=== PATIENT | female | born 1955 | race Caucasian/White ===

== ENCOUNTER 2020-03-20 19:37 | Emergency (ER) | payer MEDICARE, SELFPAY ==
[2020-03-20] VITALS (22 sets, daily range): BP systolic 139–188; BP diastolic 68–125; PULSE 66–94; RESP 10–33; TEMP 36.6; O2SAT 92–97; BMI 26.2
--- NOTE | 2020-03-20 20:01 | DI.RAD.S_ITS ---
PROCEDURE: XR FOREARM RT 2V INDICATIONS: slip/fall while showering TECHNIQUE: 2 views of the forearm were acquired. COMPARISON: None. FINDINGS: Bones: Remote orthopedic fixation of the shaft of the ulna with a side plate and multiple screws without hardware failure or loosening. Distal radial diametaphyseal fracture with mild displacement and angulation. Soft tissues: No suspicious soft tissue calcifications or masses. IMPRESSION: Distal radial diametaphyseal fracture with mild displacement and angulation. Dictated by: Benny Chu M.D. on 03/20/2020 at 20:35 Approved by: Benny Chu M.D. on 03/20/2020 at 20:37
--- NOTE | 2020-03-20 20:02 | DI.RAD.S_ITS ---
PROCEDURE: XR WRIST RT MIN 3V INDICATIONS: Slip/fall while showering TECHNIQUE: 3 views of the wrist were acquired. COMPARISON: None. FINDINGS: Bones: Markedly comminuted, impacted, angulated, mildly displaced distal radius fracture extending to the articular surface. Remote ORIF of the ulnar shaft with no evidence of hardware failure or loosening. No suspicious bony lesions. Soft tissues: No suspicious soft tissue calcifications. IMPRESSION: Markedly comminuted, impacted, angulated, mildly displaced distal radius fracture extending to the articular surface. Dictated by: Benny Chu M.D. on 03/20/2020 at 20:38 Approved by: Benny Chu M.D. on 03/20/2020 at 20:39
--- NOTE | 2020-03-20 21:17 | PC.NURSE ---
Report given to Brianna, NR
[2020-03-20] MEDS: OXYCODONE/APAP 5/325 PREPACK 1 BOTTLE MISC (22:55)
[2020-03-20] MEDS: ONDANSETRON 4 MG/2 ML INJ IV (22:55)
[2020-03-20] MEDS: ONDANSETRON 4 MG ODT PREPACK 1 BOTTLE MISC (22:55)
[2020-03-20] MEDS: propofoL 200 MG/20 ML VIAL 70 MG IV (23:15)
[2020-03-20] MEDS: propofoL 200 MG/20 ML VIAL 90 MG IV (23:18)
[2020-03-20] MEDS: HYDROMORPHONE 1 MG INJ IV (23:52)
[2020-03-21] VITALS: PULSE 74; RESP 28
--- NOTE | 2020-03-21 | DI.RAD.S_ITS ---
PROCEDURE: XR WRIST RT 2V INDICATIONS: POST REDUCTION TECHNIQUE: 3 views of the wrist were acquired. COMPARISON: [facility], CR, XR FOREARM RT 2V, 03/20/2020, 20:02. [facility], CR, XR WRIST RT MIN 3V, 03/20/2020, 20:02. FINDINGS: Bones: On these postcasting views, there is improved anatomic alignment of the comminuted, intra-articular distal radius fracture. The visualized distal ulna hardware appears intact. Age-appropriate bony degenerative changes are seen. The overlying casting material limits evaluation of fine detail. Soft tissues: No suspicious soft tissue calcifications. IMPRESSION: Improved anatomic alignment of the distal radius fracture. Dictated by: Vladimir Marin M.D. on 03/21/2020 at 8:50 Approved by: Vladimir Marin M.D. on 03/21/2020 at 8:51
[2020-03-21 00:05] VITALS: PULSE 83; RESP 23
[2020-03-21 00:10] VITALS: PULSE 79; RESP 31
[2020-03-21 00:15] VITALS: PULSE 77; RESP 20
[2020-03-21 00:25] LABS: COVID19 -Nasal RAPID Negative (Negative)
--- NOTE | 2020-03-21 06:27 | ED_ITS ---
HPI - Extremity Injury (Upper) General Chief Complaint: Extremity Injury, Upper Stated Complaint: Right arm thinks fractured Time Seen by Provider: 03/20/20 20:02 Source: patient and family Mode of arrival: Ambulatory Limitations: no limitations History of Present Illness HPI narrative: 64-year-old female never smoker with noncontributory medical history presents with a chief complaint of right wrist pain after an accidental fall earlier today. In doing so she felt immediate, significant pain in her right wrist which is made worse with motion and improves with rest. She denies any numbness, tingling or weakness. She denies any other injury. She denies chest pain, shortness of breath. MD complaint: injury to: right Onset (ago): hour(s) Other injuries: none Handedness: right Place: home Relieving factors: immobilization Exacerbating factors: movement of extremity Context: fall Associated symptoms: denies other symptoms Treatments prior to arrival: splint Related Data Previous Rx's Medication Instructions Recorded ondansetron 4 mg PO TID-QID PRN #10 tab 03/20/20 oxycodone 5 mg PO Q6H PRN #20 tab 03/20/20 Allergies Allergy/AdvReac Type Severity Reaction Status Date / Time gluten [GLUTEN] Allergy Unknown Unverified 11/14/17 11:48 Review of Systems Constitutional Constitutional: Denies chills, Denies fatigue, Denies fever(s), Denies frequent falls, Denies lethargy and Denies weakness Eyes Eyes: Denies change in vision, Denies eye discharge, Denies irritation and Denies loss of vision ENT Ears, Nose, Mouth, and Throat: Denies change in voice, Denies dizziness, Denies neck pain, Denies sore throat and Denies throat swelling Cardiovascular Cardiovascular: Denies chest pain, Denies irregular heart rhythm, Denies lightheadedness, Denies palpitations, Denies dyspnea, Denies dyspnea on exertion and Denies orthopnea Respiratory Respiratory: Denies cough, Denies dyspnea, Denies dyspnea on exertion and Denies wheezing Gastrointestinal Gastrointestinal: Denies abdominal pain, Denies change in bowel habits, Denies diarrhea, Denies nausea and Denies vomiting Musculoskeletal Musculoskeletal: Reports arthralgias, Reports joint swelling, Denies neck pain and Denies numbness Integumentary/Breasts Skin/Breast: Denies pruritus, Denies erythema, Denies rash and Denies wounds Neurologic Neurologic: Denies behavioral changes, Denies confusion, Denies dizziness, Denies frequent falls, Denies loss of vision, Denies numbness and Denies weakness Psychiatric Psychiatric: Denies anxiety, Denies behavioral changes, Denies confusion, Denies depression, Denies homicidal ideation and Denies suicidal ideation Endocrine Endocrine: Denies fatigue, Denies flushing and Denies palpitations Hematologic/Lymphatic Hematologic/Lymphatic: Denies easy bruising Allergic/Immunologic Allergic/Immunologic: Denies urticaria, Denies throat swelling and Denies wheezing Patient History Surgical History History of bladder suspension procedure History of lithotripsy Status post hysterectomy Social History Smoking Status: Never smoker Smoking Status: Never smoker alcohol intake frequency: 0-2 drinks per day Substance Use Type: does not use Exam Narrative Exam Narrative: GENERAL: [64] year old patient appears stated age. Well- nourished, well-developed patient, in mild distress. HEAD: Atraumatic. Normocephalic. EYES: Pupils equal round and reactive. Extraocular motions intact. No scleral icterus. No injection or drainage. ENT: Nose without bleeding, purulent drainage. Throat without erythema, tonsillar hypertrophy or exudate. Airway patent. NECK: Trachea midline. Non tender CARDIOVASCULAR: Regular rate and rhythm without murmurs, gallops, or rubs. RESPIRATORY: Clear to auscultation. Breath sounds equal bilaterally. No wheezes, rales, or rhonchi. GASTROINTESTINAL: Abdomen soft, non-tender, nondistended. EXTREMITIES: Obvious deformity consistent with distal radius fracture, closed, isolated neurovascularly intact BACK: Nontender without deformity or crepitance. No flank tenderness. NEURO: AOx3. SKIN: No rash or erythema of visible areas Initial Vital Signs Initial Vital Signs: Vital Signs Temperature 97.9 F 03/20/20 19:45 Pulse Rate 94 H 03/20/20 19:45 Respiratory Rate 17 03/20/20 19:45 Blood Pressure 188/73 H 03/20/20 19:45 Pulse Oximetry 97 03/20/20 19:45 Procedures Orthopedic Fracture Reduction Fracture #1: Time Out Performed: Yes Side: right Fracture Reduction Location: radius Analgesia: procedural sedation Technique: direct manipulation Post Reduction X-rays Demonstrate: anatomical reduction Post-reduction neuro exam: intact Post-reduction vascular exam: intact Splint Applied: Yes Patient Tolerated Procedure: Well Orthopedic Splinting/Casting Injury #1: Side: right Upper Extremity Injury Location: wrist Upper Extremity Immobilizer: sling/shoulder immobilizer Post splinting neuro exam: intact Post splinting vascular exam: intact Placed by: Nursing Procedural Sedation Consent signed: Yes Time out performed: Yes Indication: fracture/dislocation reduction ASA Class: II Mallampati Airway Classification: Class II Preparation: diagnostic cardiac sonographer applied, pulse oximeter, capnometry used, supplemental O2 applied and suction/airway equipment at bedside IV Propofol dose (mg): 160 Intraservice time/total sedation time (min): 10 ED Sedation Level: Moderate (Concious) Patient Tolerated Procedure: Well Complications: none Course Orders Ordered: ED Orders 03/21/20 XR wrist RT 2V Stat Discontinued Medications Hydromorphone HCl (Dilaudid) 1 mg IV NOW ONE Stop: 03/20/20 23:49 Last Admin: 03/20/20 23:52 Dose: 1 mg Documented by: AMNA Ondansetron HCl (Zofran Odt Prepack) 1 bottle MISC SEEINSTR ONE Stop: 03/20/20 22:45 Last Admin: 03/20/20 22:55 Dose: 1 bottle Documented by: AMNA Ondansetron HCl (Zofran) 4 mg IV NOW ONE Stop: 03/20/20 22:45 Last Admin: 03/20/20 22:55 Dose: 4 mg Documented by: AMNA Oxycodone/Acetaminophen (Endocet 5/325 Prepack) 1 bottle MISC SEEINSTR ONE Stop: 03/20/20 22:45 Last Admin: 03/20/20 22:55 Dose: 1 bottle Documented by: AMNA Propofol (Diprivan) 70 mg 1 mg/kg (70 mg) IV NOW ONE Stop: 03/20/20 22:45 Last Admin: 03/20/20 23:15 Dose: 70 mg Documented by: AMNA Propofol (Diprivan) 90 mg IV NOW ONE Stop: 03/20/20 23:26 Last Admin: 03/20/20 23:18 Dose: 90 mg Documented by: AMNA Vital Signs Vital signs: Vital Signs - 8 hr 03/20/20 22:30 03/20/20 22:35 03/20/20 22:40 Pulse Rate 75 76 79 Respiratory Rate Blood Pressure Pulse Oximetry 96 96 95 03/20/20 22:41 03/20/20 22:45 03/20/20 22:50 Pulse Rate 78 78 80 Respiratory Rate Blood Pressure 169/79 H Pulse Oximetry 95 95 96 03/20/20 22:55 03/20/20 23:00 03/20/20 23:05 Pulse Rate 79 80 79 Respiratory Rate 10 L Blood Pressure 155/74 H Pulse Oximetry 95 93 94 03/20/20 23:10 03/20/20 23:15 03/20/20 23:20 Pulse Rate 78 81 80 Respiratory Rate 12 21 20 Blood Pressure 151/73 H 139/68 151/68 H Pulse Oximetry 94 97 97 03/20/20 23:25 03/20/20 23:30 03/20/20 23:31 Pulse Rate 93 H 85 85 Respiratory Rate 33 H 33 H 22 Blood Pressure 181/125 H Pulse Oximetry 96 96 92 03/20/20 23:33 03/20/20 23:35 03/20/20 23:40 Pulse Rate 74 69 69 Respiratory Rate 28 H 19 15 Blood Pressure 171/79 H Pulse Oximetry 96 95 94 03/20/20 23:45 03/20/20 23:50 03/20/20 23:55 Pulse Rate 66 71 72 Respiratory Rate 13 15 10 L Blood Pressure 155/72 H Pulse Oximetry 93 96 94 03/21/20 00:00 03/21/20 00:05 03/21/20 00:10 Pulse Rate 74 83 79 Respiratory Rate 28 H 23 31 H Blood Pressure Pulse Oximetry 03/21/20 00:15 Pulse Rate 77 Respiratory Rate 20 Blood Pressure Pulse Oximetry MDM - Extremity Injury (Upper) Lab Data Labs: Lab Results 03/20/20 Range/Units 22:45 COVID-19 PCR Negative (Negative) Point of Care Testing Test Results Not applicable Discharge Plan Departure Patient Disposition: Home Clinical Impression: Distal radius fracture, right Qualifiers: Encounter type: initial encounter Fracture type: closed Fracture morphology: un specified fracture morphology Qualified Code(s): S52.501A - Unspecified fracture of the lower end of right radius, initial encounter for closed fracture Discharge Date/Time: 03/21/20 00:12 Instructions: DI for Distal Radius Fracture Activity Restrictions/Additional Instructions: *You have been diagnosed with [right distal radius fracture] *What to do: *Take medications as directed *Follow up with Dr. Mccall, call for an appointment. Let them know you were seen in the Emergency Department and that we ask that you be seen in follow up *Return to ER if you should have any new, worsening or concerning symptoms Prescriptions: New oxycodone 5 mg tablet 5 mg PO Q6H PRN (Reason: pain) Qty: 20 RF: 0 ondansetron 4 mg tablet,disintegrating 4 mg PO TID-QID PRN (Reason: nausea and vomiting) Qty: 10 RF: 0 Referrals: Reinaldo Melgoza MD [Primary Care Provider] -
--- NOTE | 2020-03-22 10:11 | PM.HP.1 ---
History of Present Illness History of Present Illness Date Patient Seen: 03/22/20 Time Patient Seen: 10:10 Date of Onset of Symptoms: 03/20/20 Chief complaint: Right arm thinks fractured Narrative: Chika 64-year-old female that fell onto her right wrist in her bathroom. She is in the midst of moving right now. She is right-hand dominant. 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 That has since resolved. She also has a history of a TFCC repair. Her last surgeries were done by Dr. Lobito Adrian in [place] in 2014. She endorsed immediate pain deformity and swelling and bruising during her fall on 03/20/2020. Her son was with her. They took the [place] to [facility] and had x-rays that demonstrated a displaced right distal radius fracture. She was reduced in the ER and splinted and released for plan returned to surgery. She had a COVID-19 test that was negative. She has a displaced intra-articular distal radius fracture. Endorses pain. She states she was given Percocet from the ER. This has helped some but she also has a history of celiac disease and has had multiple difficulties taking medications in the past. Per her previous surgeries she actually did best with low-dose p.o. Dilaudid. She also endorses some nausea. She has to balance the affects of the pain medication and constipation. Her stomach unable to tolerate anti-inflammatories. Denies fevers chills nausea vomiting shortness of breath. Patient History Surgical History History of bladder suspension procedure History of lithotripsy Status post hysterectomy Family & Social History Tobacco & Substance use: Smoking Status Never smoker alcohol intake frequency 0-2 drinks per day Substance Use Type does not use Meds Home Medications and Allergies Home Medications Medication Instructions Recorded Confirmed Type ondansetron 4 mg PO TID-QID PRN #10 tab 03/20/20 Rx oxycodone 5 mg PO Q6H PRN #20 tab 03/20/20 Rx Allergies Allergy/AdvReac Type Severity Reaction Status Date / Time hydroxyzine Allergy Severe increased Verified 03/22/20 10:09 heart rate gluten [GLUTEN] Allergy Unknown Verified 03/22/20 10:09 acetaminophen [From Percocet] AdvReac Severe Agitated Verified 03/22/20 10:09 oxycodone [From Percocet] AdvReac Severe Agitated Verified 03/22/20 10:09 Review of Systems Review of Systems Narrative: History of wound intolerance, nickel allergy. Denies fevers chills. Denies nausea or vomiting. Does get some nausea with pain medications. ROS: Yes All systems reviewed with the patient and are negative except as otherwise documented Exam Vital Signs (past 8 hours): Oxygen Delivery Method Room Air Narrative Exam Narrative: General exam: HEENT exam: Respiratory exam: CV exam: Musculoskeletal examination: Objective Imaging Wrist x-ray: My impression: Three-view right wrist before and after reduction are AP oblique and lateral demonstrate displaced intra-articular distal radius fracture with shortening. There has been plate fixation of the ulna without evidence of acute ulnar injury. Her postreduction images that show improved alignment of the intra-articular distal radius fracture. Radiologist's impression: IMPRESSION: Markedly comminuted, impacted, angulated, mildly displaced distal radius fracture extending to the articular surface. Dictated by: Benny Chu M.D. on 03/20/2020 at 20:38 Approved by: Benny Chu M.D. on 03/20/2020 at 20:39 Labs Labs: Laboratory Results - last 24 hr 03/20/20 22:45 COVID-19 PCR Negative Assessment & Plan Assessment and plan (1) Distal radius fracture, right: Problem details: Right intra-articular distal radius fracture with shortening and displacement. Patient is indicated for operative treatment to improve and maintain alignment reduce the risk of fracture collapse and dysfunction and facilitate early range of motion. She does have a history of a nickel allergy therefore would plan for a titanium plate. This will be done on an outpatient basis. Patient is in the midst of moving off of the [facility] this week. Will try to coordinate this for her for a operation date of 03/22/2020. [place] friend in [place]. She has a negative covered has. Will order the [employer] titanium distal radius up tray. Plan for surgery around 11:00 a.m. on Sunday arrival time at 9:00 a.m. patient is notified of this. Will be outpatient procedure. Consent will be completed morning of surgery Qualifiers: Encounter type: initial encounter Fracture morphology: unspecified fracture morphology Fracture type: closed Qualified Code(s): S52.501A - Unspecified fracture of the lower end of right radius, initial encounter for closed fracture Status: Acute (2) H/O metal allergy: Problem details: History of metal allergy had a reaction with stainless steel plate on her ulna this was later removed and then revised to a titanium plate which she has tolerated well. Will plan titanium hardware for the distal radius fracture Status: Acute Assessment & Plan narrative: The patient sustained a right closed distal radius fracture in a fall at home. She has unrelated worker's Comp claims regarding the ulna on the same side that was fixed a years ago. This is an unrelated injury with a fall onto the right wrist at home resulting in the right distal radius fracture. The displaced intra-articular fracture that would benefit from a stable fixation to prevent recurrent deformity and facilitate early range of motion. The risks and benefits of the procedure have been discussed with the patient even opportunity to ask questions. The risks of surgery include but are not limited to infection, malunion, nonunion, persistence of pain, damage to nerves and blood vessels, posttraumatic arthritis, DVT, PE, cardiopulmonary complications and . The patient expressed a thorough understanding of the risks and benefits of surgery and has elected to proceed. Consent was signed. COVID-19 COVID-19 status: Negative Result date/Date tested (Pos, Neg/Pending): 03/21/20 Time Spent With Patient Time with patient: less than 15 minutes Quality VTE Deep Vein Thrombosis/Pulmonary Embolism Present on Admission: No
--- NOTE | 2020-03-22 10:12 | PM.PREOP ---
Pre-operative Note COVID-19 COVID-19 status: Negative Interval Note History & Physical reviewed/Exam performed by Physician: Yes Changes to H&P: No
== END 2020-03-21 00:12 | disposition home or self-care (01) ==
PROVIDERS: Emergency Provider Emergency Medicine; PCP Family Medicine; Referring Provider Preventive Medicine Occupational Medicine
DX: S52.501A Unspecified fracture of the lower end of right radius, initial encounter for closed fracture (principal); W19.XXXA Unspecified fall, initial encounter
CPT/HCPCS: 25605; 29125; 36415; 73090; 73100; 73110; 87635; 94770; 99152; 99285; J1170; J2405; J2704

== ENCOUNTER 2020-03-22 09:38 | Day surgery (SDC) | payer MEDICARE, SELFPAY ==
[2020-03-22] VITALS (10 sets, daily range): BP systolic 115–148; BP diastolic 54–87; PULSE 72–94; RESP 13–16; TEMP 36.7–36.9; O2SAT 90–98; BMI 25.0
[2020-03-22] MEDS: LACTATED RINGERS 1,000 ML 120 ML IV ×2 (10:30→12:16)
--- NOTE | 2020-03-22 10:32 | P.OP_ITS ---
Operative Date/Time/Diagnoses Date of procedure: 03/22/20 Time of procedure: 10:32 Pre-op diagnosis: Displaced right intra-articular distal radius fracture Post-op diagnosis: same Procedure & Clinicians Procedure: Open reduction internal fixation 3 part distal radius fracture, intra-articular, right CPT code 66633 Same procedure as scheduled: Yes Indications: Patient is a 64-year-old female with a history of a right hand dominant. She has a remote history of a ulnar shortening osteotomy complicated by nickel allergy and nonunion requiring revision with titanium plate. That is a separate L&I claim. She fell on 03/20/2020 backwards onto her wrist and had immediate pain and deformity. She was seen [facility] ER and found to have a displaced right distal radius fracture. This was shortened and comminuted and intra-articular. She had a reduction maneuver in the ER there was continued displacement. The patient was indicated for open reduction internal fixation to restore length articular alignment and to help restore function and facilitate early range of motion. Patient has elected to proceed. We will use a titanium plate. The risks and benefits of the procedure have been discussed with the patient even opportunity to ask questions. The risks of surgery include but are not limited to infection, malunion, nonunion, persistence of pain, damage to nerves and blood vessels, posttraumatic arthritis, DVT, PE, cardiopulmonary complications and . The patient expressed a thorough understanding of the risks and benefits of surgery and has elected to proceed. Consent was signed. Surgeon: Polina Arthur Click Yes if Unassisted: Yes Anesthesia Type: General and Local Operative Notes Findings: Displaced distal radius fracture, right Closure Type: primary Specimen(s): none sent Prosthetic devices, grafts, tissues, transplants, or devices: [facility] fatou-2 titanium volar distal radius locking plate-- narrow, short right-sided distal radius plate (3 hole). With 3.5 locking and nonlocking screws proximally and 2.3 locking pegs distally. Estimated Blood Loss (mL): 5 Blood products transfused: none Tourniquet time (min): 62 Procedure in detail: Patient was in the preoperative area the site of surgery was marked informed consent confirmed. The patient was brought back to the operating room by the anesthesia team. She was positioned supine operative table. All bony problems well padded. A anesthesia was administered. A well- padded brachial tourniquet was placed. A formal time-out procedure was called confirming the patient's side and site of surgery administration of appropriate preoperative antibiotics and presence of informed consent. All were in agreement. Implants were in the room. The right upper extremity is then prep ped and draped in standard sterile fashion. Esmarch was used for exsanguination and the tourniquet elevated to 250 mm of mercury. And extended FCR approach was drawn on the wrist the incision was taken down to the skin sharply. The FCR was exposed. The sheath was opened and the tendon retracted ulnarly to protect the palmar cutaneous branch of the median nerve. Radia artery was visualized and protected. The floor of the FCR was then opened to expose the deep muscles. The FPL was retracted ulnarly and the pronator quadratus was then released from the radial border reflected ulnarly to expose the distal radius and the fracture. Transitional zone was debrided to expose the distal extent of the fracture. Brachioradialis was tenotomized and the 1st compartment opened to expose the tendons. This allowed us to free up the dorsal periosteum and evacuated the hematoma. Fracture was then mobilized by pronating the proximal fragment with a lobster claw clamp. The fracture site was debr ided. Next a reduction maneuver was completed restoring the volar tilt and radial height. This on the patient's size a narrow short distal radius plate was selected. This was positioned and a nonlocking 3.5 screw was placed in the oblong hole. A K-wire placed distally. Position was checked on multiple fluoroscopic images intraoperatively. Care was taken to make sure the plate was a proximal to the water should line in appropriate laterally. Next a nonlocking screw was placed distally to bring the plate down to bone. Then another nonlocking screw was placed in the radial styloid hole however this did not chief good bites of this was removed and replaced with locking pegs. Additional distal holes were filled with locking pegs. And the original nonlocking screw in the proximal ulnar corner was replaced with locking screw at the end. Multiple fluoroscopic images were obtained intraop. No evidence of hardware or dorsal cortex penetration was found. Then attention was turned to the proximal screws to 3 5 locking screws were placed to finish up the proximal fixation. Again final x-rays were taken confirming uatsdin of radial height and volar tilt in stable construct. No evidence of intra-articular prominent hardware was found. The wrist was taken through range of motion no blocks or crepitus noted. Tourniquet was released. Hemostasis was achieved. Fingers pinked up immediately. A deep closure was attempted with a Vicryl through the pronator quite quadratus however this ripped through easily. One repeat suture was completed to but the rest of the tissue was in poor quality therefore closure continued on with 4 0 Monocryl subcutaneously supplemented by few 2 O Vicryl and then 3 O nylon in the skin. Local anesthetic was infiltrated with 20 cc of Marcaine. A sterile dressing was placed with Xeroform gauze Webril and a volar resting splint. Patient was woken from anesthesia and taken to the recovery room in good condition. There no immediate complications from this procedure. All counts were correct. Complications: none Post-operative Condition: stable Disposition: PACU Plan for aftercare: Rest and elevation of the right upper extremity. 2 lb or coffee cup type weight limit. May type. Keep dressing and splint clean dry and intact until follow-up. Follow up in 10-14 days after surgery for suture removal and the initiation of range of motion and removable brace.
[2020-03-22] MEDS: SCOPOLAMINE 1 PATCH TOP (10:39)
[2020-03-22] MEDS: ACETAMINOPHEN 325 MG TABLET 975 MG PO (10:39)
[2020-03-22] MEDS: CEFAZOLIN 2 GM/100 ML FROZ.PIGGY IV (10:43)
[2020-03-22] MEDS: BUPIVACAINE 0.25% W/ EPI 30 ML VIAL INJ (11:21)
[2020-03-22] MEDS: fentaNYL 100 MCG/2 ML INJ IV ×2 (12:55→13:04)
== END 2020-03-22 13:57 | disposition home or self-care (01) ==
PROVIDERS: PCP Family Medicine; Referring Provider Orthopaedic Surgery Foot and Ankle Surgery; Visit Provider Orthopaedic Surgery Foot and Ankle Surgery
PROC: (CPT 25609; principal; 2020-03-22 11:00)
DX: S52.571A Other intraarticular fracture of lower end of right radius, initial encounter for closed fracture (principal); W18.30XA Fall on same level, unspecified, initial encounter; Y92.002 Bathroom of unspecified non-institutional (private) residence as the place of occurrence of the external cause
CPT/HCPCS: 25609; J0690; J1100; J2250; J2405; J2704; J3010